=== PATIENT | female | born 1985 | race African-American/Black ===

== ENCOUNTER 2021-10-30 11:33 | Day surgery (SDC) | payer OTHER ==
[2021-10-30 12:18] VITALS: BMI 35.6
== END 2021-10-30 12:40 | disposition home or self-care (01) ==
LOC: CSHLD/OP 11:33
PROVIDERS: ATTEND Obstetrics & Gynecology
DX: O36.8120 Decreased fetal movements, second trimester, not applicable or unspecified (principal); O24.112 Pre-existing type 2 diabetes mellitus, in pregnancy, second trimester; O09.522 Supervision of elderly multigravida, second trimester; Z3A.23 23 weeks gestation of pregnancy; Z79.4 Long term (current) use of insulin; Z79.84 Long term (current) use of oral hypoglycemic drugs
CPT/HCPCS: 99282